=== PATIENT | female | born 1980 | race Caucasian/White ===

== ENCOUNTER 2017-02-09 21:56 | Emergency (ER) | payer MEDICAID ==
[~2017-02-09] VITALS: Wt 65.5 kg
[~2017-02-09 21:56] MED LIST: IRON1TAB77 PO; PREN1TAB62 PO
[2017-02-10] MEDS ORDERED: ONDANSETRON (ODT) 4 MG TAB ODT STA (00:39)
[2017-02-10] MEDS ORDERED: IBUPROFEN 600 MG TAB PO ONE (01:00)
[2017-02-10] MEDS ORDERED: HYDROCODONE/APAP (5/325) TAB PO ONE (01:00)
--- NOTE | 2017-02-10 01:31 | RADRPT ---
PROCEDURE: XR left ankle CLINICAL INDICATION: trauma TECHNIQUE: 3 views were performed. COMPARISON: None. FINDINGS: No definite fracture, dislocation, and/or effusion is seen. The ankle mortise is grossly intact. N o marked soft tissue edema. No definite abnormal calcification. IMPRESSION: No definite acute bony abnormality. RPTAT: HLBE Sheree Gillespie Physician Date Time Electronically viewed and signed by Sheree Gillespie, Physician on 02/10/2017 01:30 LE/
[2017-02-10] MEDS ORDERED: HYDR-906 PO (02:05)
[2017-02-10] MEDS ORDERED: NAPR-260 PO (02:06)
--- NOTE | 2017-02-13 15:35 | ERD ---
ER Documentation Chief Complaint Date/Time DATE: 02/13/17 TIME: 15:31 Chief Complaint Twisted her ankle at 1800 HPI This patient is a 37-year-old female with no significant medical history presenting to the emergency department for rolling her left ankle approximately 1800 today. The patient reports severe pain which is worse with weightbearing. The patient is taken no medication for relief of symptoms. The patient denies alleviating factors. She also states she flexed her ankle forward. The patient denies hearing a pop or crack. The patient denies head injury, loss of consciousness, or other injuries or symptoms. ROS All systems reviewed and are negative except as per history of present illness. Medications Home Meds Active Scripts Naproxen* (Naprosyn*) 500 Mg Tablet, 500 MG PO BID Y for PAIN AND/OR INFLAMMATION, #30 TAB Prov:ABBIE HENLEY PA-C 02/10/17 Hydrocodone/Acetaminophen (Savannah 5-325 Tablet) 1 Each Tablet, 1 TAB PO Q6H Y for PAIN, #7 TAB Prov:ABBIE HENLEY PA-C 02/10/17 Reported Medications Iron,Carbonyl/Ascorbic Acid (IRON 100-VITAMIN C TABLET) 1 Each Tablet, 1 EACH PO AM 11/11/13 Vit-Iron Fumarate-FA ( Vitamin Tablet) 1 Each Tablet, 1 EACH PO AM 11/11/13 Allergies Allergies: Coded Allergies: No Known Allergies (Verified Allergy, 11/11/13) Uncoded Allergies: nkda (Allergy, 11/11/13) PMhx/Soc Medical and Surgical Hx: pt denies Medical Hx, pt denies Surgical Hx Hx Alcohol Use: No Hx Substance Use: No Hx Tobacco Use: No Smoking Status: Never smoker Physical Exam Vitals Vital Signs Date Time Temp Pulse Resp B/P Pulse Ox O2 Delivery O2 Flow Rate FiO2 02/09/17 22:04 100.3 115 18 125/88 99 Physical Exam Const: The patient is in a wheelchair and she is appears to be in slight distress secondary to pain. Head: Atraumatic Eyes: Normal Conjunctiva ENT: Normal External Ears, Nose and Mouth. Neck: Full range of motion..~ No meningismus. Resp: Clear to auscultation bilaterally Cardio: Regular rate and rhythm, no murmurs Abd: Soft, non tender, non distended. Normal bowel sounds Skin: No petechiae or rashes Back: No midline or flank tenderness Ext: There is some tenderness palpation of the lateral and medial malleolus of the left ankle with some associated soft tissue swelling present. The patient has limited range of motion secondary to pain. 2+ pedal pulses. There is no tenderness to palpation of the base of the fifth metatarsal. Neur: Awake and alert Psych: Normal Mood and Affect Results 24 hrs Current Medications Medications (Trade) Dose Ordered Sig/Diane Route PRN Reason Start Time Stop Time Status Last Admin Dose Admin Acetaminophen/ Hydrocodone Bitart (Savannah (5/325)) 1 tab ONCE ONCE PO 02/10/17 01:00 02/10/17 01:01 DC 02/10/17 00:54 Ondansetron HCl (Zofran Odt) 4 mg ONCE STAT ODT 02/10/17 00:39 02/10/17 00:41 DC 02/10/17 00:55 Ibuprofen (Motrin) 600 mg ONCE ONCE PO 02/10/17 01:00 02/10/17 01:01 DC 02/10/17 00:54 [place] [id number] Radiology Main Line: [phone] DIAGNOSTIC IMAGING REPORT Patient: CAROL STALEY : 1980 Age: 37 Sex: F MR #: [id number] DOS: 02/10/17 0000 Ordering MD: ABBIE HENLEY PA-C Location: [facility] Room/Bed: PROCEDURE: XR left ankle CLINICAL INDICATION: trauma TECHNIQUE: 3 views were performed. COMPARISON: None. FINDINGS: No definite fracture, dislocation, and/or effusion is seen. The ankle mortise is grossly intact. No marked soft tissue edema. No definite abnormal calcification. IMPRESSION: No definite acute bony abnormality. RPTAT: HLBE Physician Laxmi Date Time Electronically viewed and signed by Sheree Gillespie Physician on 02/10/2017 01 :30 LE/ CC: ABBIE HENLEY PA-C/[facility] 37-year-old female presents secondary to complaints of rolling her left ankle at approximately 1800. On physical examination the patient was found to be slightly tachycardic at 115 bpm, which I believe is secondary to pain. Examination of the left ankle shows tenderness palpation of the lateral and medial malleolus with associated soft tissue swelling and limited range of motion. X-rays were negative for acute fracture or other bony abnormality and they were interpreted by the radiologist. The patient was medicated in the department with p.o. Zofran, p.o. Savannah, and p.o. ibuprofen. On reevaluation she was feeling improved. An Manuelito wrap was placed on the left ankle and the patient was neurovascularly intact postplacement. The patient was given crutches with training. Rice therapy was discussed. The patient is to have close follow-up with the primary care physician and orthopedics if necessary. Strict ER return precautions were discussed and the patient demonstrate good understanding. Departure Diagnosis: Primary Impression: Ankle sprain Condition: Fair Patient Instructions: Treating Ankle Sprains, Self-Care for Strains and Sprains Referrals: [facility] () Usted se donohue hecho un examen mdico de control que le indica que no est en anum condicin que requiera tratamiento urgente en el Departamento de Emergencia. Un estudio ms profundo y el tratamiento de asif condicin pueden esperar sin ningn riesgo hasta que usted sea atendida/o en el consultorio de asif mdico o anum cl donna. Es responsabilidad suya arreglar anum krissy para el seguimiento del deandra. MANEJO DE CONDICIONES NO URGENTES EN EL FUTURO 1) Si usted tiene un mdico de atencin primaria: ted debera llamar a asif mdico de atencin primaria antes de venir al departamento de emergencia. Despus de las horas de consultorio, asif doctor o asif asociado/a est disponible por telfono. El mdico o enfermero de mercy en el servicio telefnico puede asesorarle por debo medio para atender el problema, o deandra contrario se puede programar anum krissy. 2) Si usted no tiene un mdico de atencin primaria: Llame al mdico o clnica de referencia que aparece abajo rolf las horas de consultorio para hacer anum krissy para que le vean. CLINICAS: [facility] [phone] [facility] [phone] [facility] [phone] [place] [id number] [phone] [place] [id number] [phone] [facility] [phone] [address] [facility]. [facility] Urgent Care 7 a.m.- 11 p.m. Every Day of the Week NO APPOINTMENT OR AUTHORIZATION NEEDED [facility] Hours: Mon-Fri 9:00 AM - 5:00 PM Additional Instructions: No mas mejor en 2-3 harding, regresar. Mas peor en 24 horas, regresear rapidamente. Ir a doctor primario in 5-7 harding. Usar instrucciones cuando tonya medicamento. ABBIE HENLEY PA-C February 13, 2017 15:35
== END 2017-02-10 03:00 | disposition home or self-care (01) ==
LOC: FTE 21:56
DX: S93.402A Sprain of unspecified ligament of left ankle, initial encounter (principal); X50.9XXA Other and unspecified overexertion or strenuous movements or postures, initial encounter; Y92.9 Unspecified place or not applicable
CPT/HCPCS: 73610; Z7610